=== PATIENT | male | born 1950 | race Caucasian/White ===

== ENCOUNTER → 2018-11-29 | Outpatient (CLI) | payer OTHER | LOC: RAD 11:04 | DX: R06.02 Shortness of breath (principal); M47.814 Spondylosis without myelopathy or radiculopathy, thoracic region ==

== ENCOUNTER 2018-12-07 11:20 | Emergency (ER) | payer OTHER ==
[~2018-12-07] VITALS: Ht 190.5 cm; Wt 95.3 kg
[2018-12-07] MEDS ORDERED: NORFLEX100 MG PO (14:10)
[2018-12-07] MEDS ORDERED: MOBIC7.5 MG PO (14:10)
[2018-12-07 14:40] VITALS: BP 150/51
== END 2018-12-07 16:15 | disposition home or self-care (01) ==
LOC: ER 11:20
DX: M54.2 Cervicalgia (principal); E11.9 Type 2 diabetes mellitus without complications; I10 Essential (primary) hypertension

== ENCOUNTER 2018-12-12 00:57 | Inpatient (IN) | payer OTHER ==
[~2018-12-12] VITALS: Ht 193 cm; Wt 93.9 kg
[~2018-12-12 00:57] MED LIST: MOBIC7.5 MG PO; NORFLEX100 MG PO
[2018-12-12 00:58] VITALS: BP 105/66
[2018-12-12 01:45] LABS: HEMATOCRIT 40.8 % (42.0-52.0); HEMOGLOBIN 13.9 gm/dL (14.0-18.0); MCH 32.4 pg (26.0-34.0); MCHC 34.1 g/dL (28.0-37.0); PLATELET COUNT 110 thou/uL (150-400); RDW 12.5 % (10.5-14.5); WBC 13.3 thou/uL (4.0-11.0)
[2018-12-12] MEDS ORDERED: BENICAR20 MG PO (01:46)
[2018-12-12] MEDS ORDERED: GLUCOPHAGE XR500 MG PO (01:47)
[2018-12-12 01:51] LABS: ANION GAP 11 mmol/L (7-16); BUN 30 mg/dL (7-18); CALCIUM 8.5 mg/dL (8.5-10.1); CHLORIDE 90 mmol/L (98-107); CO2 25 mmol/L (21-32); CREATININE 1.2 mg/dL (0.7-1.3); GLUCOSE 236 mg/dL (74-106); POTASSIUM 3.5 mmol/L (3.5-5.1); SODIUM 126 mmol/L (136-145)
[2018-12-12 02:01] LABS: ALBUMIN 2.3 g/dL (3.4-5.0); DIRECT BILIRUBIN 0.4 mg/dL (<0.1-0.3); SGOT 24 U/L (15-37); SGPT 24 U/L (30-65); TOTAL BILIRUBIN 0.9 mg/dL (<0.1-1.0); TOTAL PROTEIN 5.9 g/dL (6.4-8.2); TROPONIN-I <0.06 ng/mL (<0.06)
[2018-12-12 02:16] LABS: ABSOLUTE NEUTROPHILS 11.7 thou/uL (1.4-8.2)
[2018-12-12 02:21] LABS: URINE BILIRUBIN NEGATIVE (Negative); URINE BLOOD 2+ (Negative); URINE CLARITY CLOUDY; URINE COLOR YELLOW; URINE GLUCOSE-RANDOM* 1+ (Negative); URINE KETONES NEGATIVE (Negative); URINE NITRITE-REFLEX NEGATIVE (Negative); URINE PROTEIN (DIPSTICK) 2+ (Negative)
[2018-12-12 02:22] LABS: MUCUS None Seen strn/LPF (None Seen); SQUAMOUS None Seen /LPF (0-3); URINE LEUKOCYTES-REFLEX 3+ (Negative)
[2018-12-12 02:23] LABS: BACTERIA-REFLEX >30 Many /HPF (None Seen); CASTS None Seen /LPF (None Seen); CRYSTALS None Seen /LPF (None Seen); URINE RBC 3-10 Few /HPF (0-2); URINE WBC-REFLEX >25 Many /HPF (0-5); WBC CLUMPS Few (None Seen)
--- NOTE | 2018-12-12 05:42 | NUR ---
PER SUMIT, MESSAGE LEFT ON ANTONINA PHONE ABOUT BP AND STARTING FLUIDS
[2018-12-12 06:25] LABS: AMP/METHAMP Negative (Negative); BARBITURATES Negative (Negative); BENZODIAZEPINES Negative (Negative); COCAINE Negative (Negative); METHADONE Negative (Negative); OPIATES Negative (Negative); PCP Negative (Negative)
[2018-12-12 10:30] VITALS: BP 115/64
[2018-12-12 10:31] VITALS: BP 114/62
[2018-12-12 11:30] VITALS: BP 126/54; BP 127/80
[2018-12-12 15:02] VITALS: BP 139/72
--- NOTE | 2018-12-12 18:33 | NUR ---
PT CAME TO FLOOR APPROX 1115, VSS/NO DISTRESS, DENIES PAIN. PT CONCERNED ABOUT FULL BODY WEAKNESS AND BEING UNABLE TO COMPLETE ADLS. ANTIBIOTICS STARTED, FLUIDS RUNNING, FALL BUNDLE IN PLACE. PT GIVEN STOOL SOFTNER HE STATES HE HASNT HAD A BM IN A WEEK. PT STATED HE HAD A COLONOSCOPY ONE WEEK AGO WELL. WILL CONTINUE TO MONITOR.
[2018-12-12 19:58] VITALS: BP 153/66
--- NOTE | 2018-12-12 22:40 | EKG ---
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 : 1950 Requested By: Debbie Griffin Order Number: [id number] MD: James Carroll Measurements Intervals [place] Rate: 91 P: 18 MS: 173 QRS: -23 QRSD: 105 T: 42 QT: 341 QTc: 420 Interpretive Statements Sinus rhythm Atrial premature complexes Inferior infarct, old No previous ECG available for comparison Electronically Signed On 12-12-2018 22:40:49 CDT by James Carroll [email or web address] ��������������������������������������������� <ELECTRONICALLY SIGNED> ���������������������������������������� By: James Carroll MD ��������������������������������������������� 12/12/18 2240 James Carroll MD /AGATA
--- NOTE | 2018-12-13 02:35 | NUR ---
ASSUMED CARE ANDREINA 1900. AXOX4. FAMILY AT BEDSIDE. BLOOD CULTURE CAME BACK POSITIVE FOR GRAM POSITIVE COCCI. CALLED ANGLESMITH RAM PRESS OPERATOR FOR HIMS AND OBTAINED ORDER FOR ONETIME VANCOMYCIN AND BLOOD CULTURE IN AM. PT STILL ON ROCEPHINE FOR UTI. NO S/S ACUTE DISTRESS NOTED OR REPORTED AT THIS TIME. WILL CONT TO MONITOR FOR ANY CHANGES IN CONDITION.
[2018-12-13 03:36] VITALS: BP 143/98
[2018-12-13 05:36] LABS: CALCIUM 7.6 mg/dL (8.5-10.1); CREATININE 0.7 mg/dL (0.7-1.3); POTASSIUM 3.2 mmol/L (3.5-5.1)
[2018-12-13 07:08] VITALS: BP 136/69
[2018-12-13 14:43] VITALS: BP 128/58
--- NOTE | 2018-12-13 18:12 | NUR ---
Received awake on bed. Due medications given as prescribed. Vital signs stable. Visited by relatives this PM. On blood sugar monitoring- SS insulin given as prescribed. with IVF at Left hand- infusing well, intact. Pt turned regularly. Assisted in ADLs and Eating and drinking. A+O x 4. Complained of constipation- laxatives given. Able to pass urine using urinal. Complained of headache- medication given with full relief. Pt seen by Dr. Zhu: d/c IVF- done. With consults to Dr. Roca and Dr. Carroll- US called in and made consults. Pt. Had PT session today and tolerated well.
[2018-12-13 20:12] VITALS: BP 126/53
--- NOTE | 2018-12-14 02:57 | NUR ---
patient aox4 makes needs known. 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 patient encouraged fluids. patient had a headache tylenol given per order. patient asleep no s/s of pain or discomfort. patient in bed asleep at this time breathing regular and unlaboured.
[2018-12-14 04:16] VITALS: BP 149/91
[2018-12-14 05:50] LABS: HEMATOCRIT 38.9 % (42.0-52.0); HEMOGLOBIN 13.4 gm/dL (14.0-18.0); MCH 32.8 pg (26.0-34.0); MCHC 34.4 g/dL (28.0-37.0); MCV 95.5 fL (80.0-100.0); RBC 4.08 mil/uL (4.50-6.00); RDW 12.8 % (10.5-14.5); WBC 12.4 thou/uL (4.0-11.0)
[2018-12-14 05:59] LABS: CREATININE 0.7 mg/dL (0.7-1.3); POTASSIUM 3.3 mmol/L (3.5-5.1)
[2018-12-14 07:37] VITALS: BP 157/84
--- NOTE | 2018-12-14 10:39 | HC ---
[facility] [place] [address] CONSULTATION Name: MEREDITH PEREZ Room #: 455-P ADM IN M.R.#: [id number] Admission: 12/12/18 ������������������ Attend Phys: Jordan Lagunas MD Discharge: ������������������ Date of : 46 Report #: [id number] THIS REPORT FOR: //name// CC: Jordan Lenz DATE OF SERVICE: 12/13/2018 INFECTIOUS DISEASE CONSULTATION: ATTENDING PHYSICIAN: Dr. Zhu. REASON FOR CONSULTATION: Bacteremia. HISTORY OF PRESENT ILLNESS: A 68-year-old white man admitted through the Emergency Room with profound weakness. Apparently, these problems had been going on for 4 days, recently evaluated in the Emergency Room with some headaches and left leg feeling stiff. The patient treated with nonsteroidal anti-inflammatory drugs and muscle relaxers. 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 DRUG ALLERGIES: None listed. MEDICATIONS: The patient is currently on treatment with olmesartan medoxomil 20 mg daily, docusate 100 mg p.o. b.i.d. p.r.n., polyethylene glycol 17 grams p.o. daily, insulin lispro per sliding scale, p.r.n. glucose, glucagon, ceftriaxone 1 gram IV daily, vancomycin 1 gram IV single dose. SOCIAL HISTORY: , 3 children. 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 REVIEW OF SYSTEMS: Aches and pains, malaise, profound weakness. Dysuria and some frequency. PHYSICAL EXAMINATION: GENERAL: A well-developed, not toxic looking man, in no distress. VITAL SIGNS: Temperature maximum 99.8 on admission, blood pressure as low as 77/44 on 12/12/2018 at 5:48 a.m. Currently, his blood pressure is 136/69, respirations 18, pulse 77, temperature 98.1. HEENMT: Edentulous, otherwise normal. NECK: Supple. LUNGS: Clear. HEART: S1, S2. No gallop or murmur. ABDOMEN: Soft, no masses or megaly. PELVIC AND RECTAL: Deferred. [facility] [address] [place] [address] CONSULTATION Name: MEREDITH PEREZ Room #: 455-P [facility] IN M.R.#: [id number] Admission: 12/12/18 ������������������ Attend Phys: Jordan Lgaunas MD Discharge: ������������������ Date of : 46 Report #: [id number] EXTREMITIES: Normal. LABORATORY DATA: Sodium 131, was 126 on admission. Potassium low 3.2, BUN 19 mg/dL, creatinine 0.7, glucose 132. Calcium 7.6. Albumin 2.3 g/dL. Lactic acid elevated at 2.5 millimoles per liters, it normalizes after repeat lactic acid. Urine toxicology screen negative. WBC 13.3, hemoglobin 13.9, platelets decreased to 110,000. White blood cell count differential revealed 75% segmented neutrophils, 13% bands. Procalcitonin mildly elevated 2.59. Urinalysis revealed 2+ protein, 1+ glucose, 2+ blood, 2+ urobilinogen, 3+ leukocyte esterase, greater than 25 wbc's per HPF, 3-10 rbc's per HPF and bacteriuria. MICROBIOLOGY DATA: Urine culture pending. Blood cultures 2 out of 2 samples obtained on the date of admissions are showing Gram-positive cocci. RADIOLOGY EVALUATION: Chest x-ray done 11/29/2018 revealed no acute cardiopulmonary process. CAT scan of the C-spine revealed no fractures, anatomic alignment is normal. CT scan of the head revealed no acute intracranial abnormalities. ASSESSMENT: 1. Acute sepsis secondary to acute prostatitis versus pyelonephritis, complicated with bacteremia with Gram-positive cocci. 2. Hypotension, resolved. 3. Lactic acidemia, resolved. 4. Mild anemia. 5. Thrombocytopenia. 6. Diabetes mellitus. SUGGESTIONS: Recommend, must continue treatment with coverage against Gram-positive cocci that is Enterococcus and Staphylococcus and vancomycin appears to be the drug of choice. We will continue to dose 1 gram IV every [address] Zhu, thank you for requesting my suggestions. ��������������������������������������������� <ELECTRONICALLY SIGNED> ���������������������������������������� By: Robert Carroll MD ��������������������������������������������� 12/14/18 1039 1532 0124 Robert Carroll MD /nt
[2018-12-14 14:34] VITALS: BP 148/83
--- NOTE | 2018-12-14 14:49 | NUR ---
PT ADMITTED RELATED TO UTI/WEAKNESS. CM REVIEWED CHART AND SPOKE WITH CARE TEAM. CM MET WITH PT AT BEDSIDE THIS DAY. PT IS A&O X4. CM ROLE INTRODUCED. PT INDICATED HE HAD BEEN LIVING IN A HOUSE WITH HIS WITH 2 STEPS TO ENTER AND 12 STEPS TO BASEMENT INSIDE. 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 PT INDICATED NO DME OR HH HX. PT INDICATED THAT HE DOESN'T FEEL THAT HE WOULD BE SAFE TO RETURN HOME IN HIS CURRENT CONDITION AND HE IS NEEDING ASSISTANCE AND HE INDICATED HIS WOULDN'T BE ABLE TO ASSIST HIM. PT INDICATED HE MIGHT BE RECEPTIVE TO SHORT TERM POST ACUTE CARE STAY. CM CALLED AND LEFT VM FOR PT'S SPOUSE. CM PROVIDED PT WITH LIST OF SNF FACIITIES FOR POSSIBLE REVIEW. CM TO FOLLOW INDICATED WITH DC PLANNING.
--- NOTE | 2018-12-14 15:34 | 2DMMODE ---
[facility] [address] [place] [address] 2 D/M-MODE ECHOCARDIOGRAM Name: MEREDITH PEREZ Room #: 455-P ADM IN M.R.#: [id number] ������������� Admission: 12/12/18 ������������� Attend Phys: Jordan Lagunas MD Discharge: ��� ������������� ��� Date of : 46 Date of Service: 12/14/18 1534 �� Report #: [id number] �������� ��������������������������������������������[id number] THIS REPORT FOR: //name// APPROVED REPORT Study performed: 12/14/2018 14:00:04 EXAM: Comprehensive 2D, Doppler, and color-flow Echocardiogram Patient Location: Bedside Room #: [facility] Status: routine BSA: 2.25 HR: 72 bpm BP: 157/84 mmHg Rhythm: NSR Other Information Study Quality: Good Indications Positive blood cultures. 2D Dimensions RVDd: 34.89 mm IVSd: 12.71 (7-11mm) LVOT Diam: 23.72 (18-24mm) LVDd: 49.80 mm PWd: 10.12 (7-11mm) Ascending Ao: 38.05 (22-36mm) LVDs: 35.05 (25-40mm) Aortic Root: 41.56 mm Volumes Left Atrial Volume (Systole) Single Plane 4CH: 51.85 mL Single Plane 2CH: 49.16 mL LA ESV Index: 25.00 mL/m2 Aortic Valve AoV Peak Idris.: 1.55 m/s AO Peak Gr.: 9.63 mmHg LVOT Max P.40 mmHg LVOT Max V: 1.05 m/s WILIAN Vmax: 2.99 cm2 Mitral Valve E/A Ratio: 0.7 MV Decel. Time: 299.49 ms MV E Max Idris.: 0.64 m/s [facility] [address] [place] [address] 2 D/M-MODE ECHOCARDIOGRAM Name: MARY PEREZH Room #: 455-[facility] IN [facility].#: [id number] ������������� Admission: 12/12/18 ������������� Attend Phys: Jordan Lagunas MD Discharge: ��� ������������� ��� Date of : 46 Date of Service: 12/14/18 1534 �� Report #: [id number] �������� ��������������������������������������������[id number] A Idris.: 0.89 m/s MV PHT: 86.85 ms IVRT: 96.89 ms Pulmonary Valve PV Peak Idris.: 0.93 m/s PV Peak Gr.: 3.46 mmHg Tricuspid Valve TR Peak Idris.: 2.33 m/s RAP Estimate: 5.00 mmHg TR Peak Gr.: 21.68 mmHg PA Pressure: 27.00 mmHg Shunt Evaluation QP/QS: 3.00 Left Ventricle The left ventricle is normal size. There is normal LV segmental wall motion. There is normal left ventricular wall thickness. Left ventricular systolic function is normal. LVEF is 55-60%. Mild diastolic dysfunction is present (impaired relaxation pattern). Right Ventricle The right ventricle is normal size. The right ventricular systolic function is normal. Atria The left atrium size is normal. The right atrium size is normal. Aortic Valve Aortic valve leaflets are mildly thickened. Trace aortic regurgitation. There is no aortic valvular stenosis. Mitral Valve The mitral valve is normal in structure with echodensity consistent with vegetation Mild mitral regurgitation. Possible mitral valve vegetation is present. Tricuspid Valve The tricuspid valve is normal in structure. Trace tricuspid regurgitation. Estimated PAP is 25-30mmHg. Pulmonic Valve The pulmonary valve is normal in structure. Trace pulmonic regurgitation. [facility] [address] [place] [address] 2 D/M-MODE ECHOCARDIOGRAM Name: MEREDITH PEREZ Room #: 455-P ADM IN M.R.#: [id number] ������������� Admission: 12/12/18 ������������� Attend Phys: Jordan Lagunas MD Discharge: ��� ������������� ��� Date of : 46 Date of Service: 12/14/18 1534 �� Report #: [id number] �������� ��������������������������������������������[id number] Great Vessels Aortic root is dilated at 4.2cm. The ascending aorta measures at the upper limits of normal. IVC is normal in size and collapses >50% with inspiration. Pericardium There is no pericardial effusion. <Conclusion> The left ventricle is normal size. LVEF is 55-60%. Aortic valve leaflets are mildly thickened. Trace aortic regurgitation. The mitral valve is normal in structure with echodensity consistent with vegetation or thrombus Mild mitral regurgitation. Probable mitral valve vegetation is present. The tricuspid valve is normal in structure. Trace tricuspid regurgitation. Estimated PAP is 25-30mmHg. The pulmonary valve is normal in structure. Trace pulmonic regurgitation. Aortic root is dilated at 4.2cm. The ascending aorta measures at the upper limits of normal. There is no pericardial effusion. ��������������������������������������������� <ELECTRONICALLY SIGNED> ���������������������������������������� By: Pablo Padilla MD ��������������������������������������������� 12/14/18 1534 1534 1534 Pablo Padilla MD /INF
--- NOTE | 2018-12-14 15:40 | NUR ---
Received awake on bed. Due medications given as prescribed. With IV at L wrist. Pt had PT/OT session today- tolerated well. Complained he still haven't opened bowels for 2 days- Dr. Woodward informed as well electrolyte levels. On blood sugar monitoring- SS insulin given as prescribed. A+Ox4. On room air. Still weak- assisted in eating, drinking and ADLs. Echo done at bedside today. Vital signs stable. Falls risk- protocol observed. Patient turned regularly.
[2018-12-14 19:47] VITALS: BP 125/67
--- NOTE | 2018-12-14 23:32 | NUR ---
Assumed care at 1845. Pt resting in bed. Still is feeling weak. Still needs assistance with ADL's. AOX4. VSS. Afebrile. Denies Headache. Has been getting Tylenol. Still is constipated. Hasnt had any BM is last couple of days. Pt has prn laxatives his been getting. Needs X2 assistance getting out of the bed. X1 assist once walking with a walker and gait belt. No identified needs at the moment. Will continue to monitor.
[2018-12-15 04:37] VITALS: BP 145/75
[2018-12-15 07:09] VITALS: BP 150/73
[2018-12-15 13:50] VITALS: BP 137/61
--- NOTE | 2018-12-15 15:09 | NUR ---
CM FOLLOWED UP WITH PT AT BEDSIDE THIS DAY TO INQUIRE TO WHERE HE WANTED REFERRALS SENT FOR POSSIBLE ADMISSION. HE INDICATED THAT HE HAD GIVEN THE LIST TO HIS AND THAT SHE HAD PICKED SOME. CM CALLED PT'S AND GOT HER VM. CM TO FOLLOW INDICATED WITH DC PLANNING.
--- NOTE | 2018-12-15 16:33 | NUR ---
PT ASSESSED AT START OF SHIFT. WORKING W/ THERAPY AND BECOMING STRONGER-PT RELIEVED. ECHO SHOWING SOME POTENTIAL VEGITATION ON MITRAL VALVE AND WILL HAVE SALLY ON THURSDAY AFTER DR. ARANGO RETURNS. NOTIFIED. NO C/O PAIN. UP IN THE CHAIR MOST OF SHIFT. EATING AND DRINKING WELL.
[2018-12-15 20:10] VITALS: BP 140/71
--- NOTE | 2018-12-15 22:49 | NUR ---
Assumed care at 1845. Pt resting in bed. AOX4. Denies pain. Talked to the son Wenceslao Wiggins. Pt is still up from bed with X2 assist but he has been improving working with PT. CM send referrals to [facility]. Still waiting on the scheduled SALLY. No identified needs the moment. Will continue to monitor.
[2018-12-16 02:50] VITALS: BP 134/62
[2018-12-16 05:33] LABS: CALCIUM 7.8 mg/dL (8.5-10.1); CREATININE 0.7 mg/dL (0.7-1.3); POTASSIUM 3.4 mmol/L (3.5-5.1)
[2018-12-16 05:34] LABS: HEMATOCRIT 37.4 % (42.0-52.0); HEMOGLOBIN 12.8 gm/dL (14.0-18.0); MCH 32.7 pg (26.0-34.0); MCHC 34.2 g/dL (28.0-37.0); MCV 95.5 fL (80.0-100.0); RBC 3.92 mil/uL (4.50-6.00); WBC 10.7 thou/uL (4.0-11.0)
[2018-12-16 07:18] VITALS: BP 147/71
--- NOTE | 2018-12-16 14:04 | NUR ---
[facility] CALLED AND INDICATED THAT THEY NEEDED ADDITIONAL CLINICAL INFO REQUESTED PT, OT, AND PROG NOTES. CM TO FAX OT VARIENCED PT YESTERDAY AND TODAY. CM TO FOLLOW INDICATED WITH DC PLANNING.
[2018-12-16 15:00] VITALS: BP 169/76
--- NOTE | 2018-12-16 19:20 | NUR ---
PT A&OX4, VSS NO DISTRESS, DENIES PAIN. FALL BUNDLE IN PLACE. PT AWAITING SALLY IN THE AM, HAS BEEN NOTIFIED THAT HE WILL BE NPO AFTER MIDNIGHT. FAMILY HAS BEEN AT BEDSIDE. WILL CONTINUE TO MONITOR.
[2018-12-16 19:36] VITALS: BP 141/76
[2018-12-17] VITALS (7 sets, daily range): BP systolic 121–165; BP diastolic 63–88
--- NOTE | 2018-12-17 05:16 | NUR ---
Assumed care at 1845. Pt resting in bed. AOX4. VSS. Denies Headache. Has been NPO since midnight. Scheduled SALLY in the am. Pt been using urinal in bed. Call light within reach. Bed in lowest position. Will continue to monitor.
--- NOTE | 2018-12-17 11:15 | TEE ---
[facility] [address] [place] [place] [address] TRANSESOPHAGEAL ECHOCARDIOGRAM Name: MEREDITH PEREZ Room #: 455-P ADM IN M.R.#: [id number] ������������� Admission: 12/12/18 ������������� Attend Phys: Jordan Lagunas MD Discharge: ��� ������������� ��� Date of : 46 Date of Service: 12/17/18 1114 �� Report #: [id number] �������� ��������������������������������������������[id number] THIS REPORT FOR: //name// APPROVED REPORT Study performed: 12/17/2018 08:52:09 EXAM: Transesophageal Echocardiogram Patient Location: [facility] Room #: 455 Status: routine BSA: 2.25 HR: 85 bpm BP: 149/81 mmHg Rhythm: NSR Other Information Study Quality: Good Indications Mitral valve vegetation. Procedure After obtaining informed consent, patient underwent transesophageal echo in the [employer]. Type of Sedation : Conscious Sedation Sedation was administered by Chiquita Guido RN. Sedation was achieved intravenously with: Versed (3) Fentanyl (50) Transesophageal probe was inserted and advanced into esophagus without difficulty by Saul Chau MD. Echo enhancement indication: R/O Septal defect. Echo enhancement agent administered: Agitated Saline The SALLY was performed without complications. Throughout the procedure, the blood pressure, pulse oximetry, cardiac rhythm, and rate were monitored. The patient tolerated the procedure without adverse effects. Recovery from conscious sedation was uneventful and vital signs were stable. Left Ventricle The left ventricle is normal size. There is normal LV segmental wall motion. There is normal left ventricular wall thickness. Left ventricular systolic function is normal. LVEF is 55-60%. [facility] [address] [place] [address] TRANSESOPHAGEAL ECHOCARDIOGRAM Name: MEREDITH PEREZ Room #: 455-P ADM IN M.R.#: [id number] ������������� Admission: 12/12/18 ������������� Attend Phys: Jordan Lagunas MD Discharge: ��� ������������� ��� Date of : 46 Date of Service: 12/17/18 1114 �� Report #: [id number] �������� ��������������������������������������������[id number] Right Ventricle The right ventricle is normal size. The right ventricular systolic function is normal. Atria The left atrium size is normal. No thrombus is visualized in the left atrium or appendage. No shunting noted with contrast bubble injection. The right atrium size is normal. Aortic Valve The aortic valve is normal in structure. No aortic regurgitation is present. There is no aortic valvular stenosis. Mitral Valve Irregular bordered mass with linear threadlike extension (approx 2.0cm in length) adherent to the anterior leaflet of the mitral valve Mild mitral regurgitation. Tricuspid Valve The tricuspid valve is normal in structure. Trace tricuspid regurgitation. Pulmonic Valve The pulmonary valve is normal in structure. Trace pulmonic regurgitation. Great Vessels The aortic root is normal in size. IVC is normal in size and collapses >50% with inspiration. Pericardium There is no pericardial effusion. Critical Notification Critical Value: Yes Physician Notified Date: 12/17/2018 <Conclusion> Left ventricular systolic function is normal. There is normal LV segmental wall motion. LVEF 55-60%. No thrombus is visualized in the left atrium or appendage. No shunting noted with contrast bubble injection. The aortic valve is normal in structure. No aortic regurgitation or stenosis. Irregular bordered mass with linear threadlike extension (approx [facility] [address] [place] [address] TRANSESOPHAGEAL ECHOCARDIOGRAM Name: MEREDITH PEREZ Room #: 455-P ADM IN ..#: [id number] ������������� Admission: 12/12/18 ������������� Attend Phys: Jordan Lagunas MD Discharge: ��� ������������� ��� Date of : 46 Date of Service: 12/17/18 111 �� Report #: [id number] �������� ��������������������������������������������[id number] 2.0cm in length) adherent to the anterior leaflet of the mitral valve Mild mitral regurgitation. There is no pericardial effusion. ��������������������������������������������� <ELECTRONICALLY SIGNED> ���������������������������������������� By: Saul Chau MD, [facility] ��������������������������������������������� 12/17/184 13 13 Saul Chau MD, FAC /INF
--- NOTE | 2018-12-17 16:14 | NUR ---
FOLLOWING SALLY CARDIOTHORACIC SURGERY HAS BEEN CONSULTED. REFERRAL HAD BEEN SENT TO [facility] FOR REVIEW FOR POSSIBLE ADMISSION. CM TO FOLLOW INDICATED WITH POSSIBLE DC PLANNING. IT IS ANTICPATED THAT PT WILL BE HERE OVER THE WEEKEND.
--- NOTE | 2018-12-17 20:33 | NUR ---
PT A&OX4, VSS, DENIES PAIN. PT HAD SALLY PROCEDURE DONE TODAY. NO SIGNS OF DISTRESS. FAMILY IN TO VISIT. WILL CONTINUE TO MONITOR.
[2018-12-18 03:27] VITALS: BP 151/69
--- NOTE | 2018-12-18 04:30 | NUR ---
ASSUMED CARE OF PT AT 1900hrs. PT IS AOX4 AND WAS ABLE TO SLEEP PART OF THE SHIFT. PT HAD A LOW GRADE FEVER AND WAS TREATED WITH TYLENOL. NO OTHER S/S OF ACUTE DISTRESS. WILL CONTINUE TO MONITOR.
[2018-12-18 04:53] LABS: HEMATOCRIT 37.2 % (42.0-52.0); HEMOGLOBIN 12.9 gm/dL (14.0-18.0); MCH 32.8 pg (26.0-34.0); MCHC 34.6 g/dL (28.0-37.0); MCV 94.8 fL (80.0-100.0); RBC 3.93 mil/uL (4.50-6.00); RDW 12.8 % (10.5-14.5); WBC 9.3 thou/uL (4.0-11.0)
[2018-12-18 05:07] LABS: ALBUMIN 1.9 g/dL (3.4-5.0); CALCIUM 7.9 mg/dL (8.5-10.1); CREATININE 0.7 mg/dL (0.7-1.3); POTASSIUM 3.9 mmol/L (3.5-5.1); TOTAL BILIRUBIN 0.9 mg/dL (<0.1-1.0); TOTAL PROTEIN 5.7 g/dL (6.4-8.2)
[2018-12-18 07:47] VITALS: BP 145/69
--- NOTE | 2018-12-18 12:41 | NUR ---
TOWARDS POC PT A/O X4, VSS, AFEBRILE, DENIES PAIN. PT REFUSED TO SIT IN THE CHAIR. NO CONCERNS VOICED. WILL CONTINUE TO MONITOR.
[2018-12-18 14:19] VITALS: BP 142/68
[2018-12-18 20:21] VITALS: BP 145/73
--- NOTE | 2018-12-19 02:05 | NUR ---
ASSUMED CARE OF PT AT 1900 HRS. PT AOX4 AND STATES THAT HE FEELS STRONGER. PT WAS ABLE TO SLEEP PART OF THE SHIFT. ABX TREATMENT CONTINUED. NO OTHER S/S OF ACUTE DISTRESS. WILL CONTINUE TO MONITOR.
[2018-12-19 04:36] VITALS: BP 147/81
[2018-12-19 08:00] VITALS: BP 140/61
--- NOTE | 2018-12-19 13:13 | NUR ---
TOWARDS POC PT VSS, AFEBRILE, DENIES PAIN, NO CONCERNS VOICED. WILL CONTINUE TO MONITOR.
[2018-12-19 14:32] VITALS: BP 153/79
[2018-12-19 19:35] VITALS: BP 141/64
[2018-12-20 03:22] VITALS: BP 151/75
[2018-12-20 03:51] LABS: CALCIUM 8.2 mg/dL (8.5-10.1); CREATININE 0.6 mg/dL (0.7-1.3); POTASSIUM 3.7 mmol/L (3.5-5.1)
[2018-12-20 03:56] LABS: HEMATOCRIT 38.2 % (42.0-52.0); HEMOGLOBIN 13.1 gm/dL (14.0-18.0); MCH 32.7 pg (26.0-34.0); MCHC 34.3 g/dL (28.0-37.0); MCV 95.4 fL (80.0-100.0)
--- NOTE | 2018-12-20 05:17 | NUR ---
Pt. rested quietly at intervals during the night when checked on during frequent rounds. He did voice having a moderate amount of loose stools during the shift. Po tylenol was given for c/o a headache (see emar) with some relief noted.
[2018-12-20 08:00] VITALS: BP 146/76
--- NOTE | 2018-12-20 10:39 | HC ---
[facility] [place] [address] CONSULTATION Name: MEREDITH PEREZ Room #: 455-P ADM IN M.R.#: [id number] Admission: 12/12/18 ������������������ Attend Phys: Jordan Lagunas MD Discharge: ������������������ Date of : 46 Report #: [id number] THIS REPORT FOR: //name// CC: Jordan Lenz DATE OF SERVICE: 12/17/2018 We were asked to see the patient for the mitral valve vegetation and infective endocarditis. HISTORY OF PRESENT ILLNESS: The patient is a 68-year-old with admission on 12/12, at the time the patient was complaining of weakness and lassitude and slurred speech. In the Emergency Department, the patient was thought to have a urinary tract infection and possible sepsis and was admitted for initial treatment of this. Over the course of the hospitalization, it has become clear that the patient has bacteremia. The urinary tract infection was E. coli, but blood cultures have grown Staph aureus. A transesophageal echo done today shows vegetation on the anterior leaflet of the mitral valve. Antibiotics have been modified on the basis of the cultures and sensitivities, and the most recent blood cultures from 12/14 showed no growth. PAST MEDICAL HISTORY: Significant for diabetes mellitus and hypertension. Interestingly, the patient states that he had a colonoscopy done approximately 2 weeks ago at the [facility]. Medications at home includes olmesartan and metformin. The patient also has been taking Meloxicam and orphenadrine (Norflex) for muscle spasms in his neck. ALLERGIES: None known. SOCIAL HISTORY: The patient states he quit smoking 3 months ago. When I asked the patient why he quit smoking, he said that was because he was sick, but this predates his stated history of prodromal illness. The patient according to the chart drank 10 beers a day until recently. REVIEW OF SYSTEMS: CONSTITUTIONAL: Denies fever or chills. EYES: Denies eye pain or vision change. HEENT: Denies hearing changes, ear drainage. The patient complains of neck discomfort recently. [facility] [address] [place] [address] CONSULTATION Name: MEREDITH PEREZ Room #: 455-P [facility] IN M.R.#: [id number] Admission: 12/12/18 ������������������ Attend Phys: Jordan Lagunas MD Discharge: ������������������ Date of : 46 Report #: [id number] RESPIRATORY: Denies cough, shortness of breath, hemoptysis. CARDIOVASCULAR: Denies chest pain, palpitations. GASTROINTESTINAL: Denies nausea, vomiting, blood in stool. GENITOURINARY: Denies burning, frequency or blood. MUSCULOSKELETAL: General weakness and specifically neck discomfort. SKIN: Denies rash or infection. No bites or IV phlebitis. NEUROLOGIC: No focal motor or sensory dysfunction as mentioned in the history. There was a story of slurred speech at the time of admission. PHYSICAL EXAMINATION: GENERAL: The patient is lying in bed, seems comfortable today. VITAL SIGNS: Temperature is 37, heart rate 65, respiratory rate 18, blood pressure 151/83, and pulse ox 98%. HEENT: No scleral icterus, no arcus. Pupils are equal, round. Normocephalic. NECK: No bruit, no mass. CHEST: Clear to auscultation, somewhat amphoric sounds. HEART: Rhythm is regular. Heart tones are bit distant. ABDOMEN: Soft, no mass, no tenderness. EXTREMITIES: No clubbing, cyanosis or edema, 2+ distal pulses. Some scratches on the anterior shins are seen, but no evidence of cellulitis. NEUROLOGIC: No motor or sensory dysfunction. MUSCULOSKELETAL: No asymmetry or deformity. PSYCHIATRIC: Shows insight into problem and he is a pleasant fellow and is oriented. I reviewed the recent findings of the transesophageal echo with the patient. I have also discussed the case with Dr. Robert Carroll of the Infectious Disease Service. There is a lesion on the anterior leaflet, the size of the lesion is 1 or 2 cm depending on measurements, but this size of the lesion in itself is a class 2B, indication for surgery. If the patient has persistent positive blood cultures or evidence that the lesion is growing in size, then I think surgery would be appropriate. If blood cultures are continued to be negative on renewed treatment, it may be possible to spare the valve as there was not a significant amount of mitral incompetence seen and there is no story of persistent emboli. It is somewhat quieting that we do not know specifically what the source for the endocarditis is and there is always a risk of putting a new prosthesis at that same risk. Thank you for the consult. ��������������������������������������������� <ELECTRONICALLY SIGNED> ���������������������������������������� By: Tito Ruiz MD ��������������������������������������������� 12/20/18 1039 [id number] 45 Tito Ruiz MD /nt
--- NOTE | 2018-12-20 11:41 | NUR ---
TOWARDS POC PT A/O X4, VSS, AFEBRILE, NO SOA, NO NV. PT/OT WORK WITH HIM. NO CONCERNS VOICED. WILL CONTINUE TO MONITOR.
[2018-12-20 15:00] VITALS: BP 156/71
[2018-12-20 19:36] VITALS: BP 125/68
[2018-12-21 03:20] VITALS: BP 155/82
--- NOTE | 2018-12-21 04:13 | NUR ---
Pt. rested quietly during the night when checked on during frequent rounds. He did c/o a headache and was given tylenol times two this shift (see emar) with some relief noted. No c/o loose stools, but frequent flatus. Bed alarm is on.
[2018-12-21 07:40] VITALS: BP 161/80
--- NOTE | 2018-12-21 11:55 | NUR ---
Nutrition: assess d/t LOS. Pt admitted for UTI and weakness. Pt states he has lost some weight over the past few years but has been somewhat stable recently. His appetite has been poor but is starting to improve. Provided info on how to order meals. Consider low nutrition risk at this time.
[2018-12-21] MEDS ORDERED: ACETAMINOPHEN325 M1 PO (13:41)
[2018-12-21] MEDS ORDERED: RIFADIN IVPB (13:41)
[2018-12-21] MEDS ORDERED: COLACE 100 MG100 MG PO (13:41)
[2018-12-21] MEDS ORDERED: MIRALAX17 GM PO (13:41)
[2018-12-21] MEDS ORDERED: B-12500 MCG PO (13:41)
[2018-12-21] MEDS ORDERED: MUCINEX DM ER1 EAC1 PO (13:41)
[2018-12-21] MEDS ORDERED: NAFCILLIN2 GM/100 M IV (13:41)
--- NOTE | 2018-12-21 14:11 | NUR ---
VASCULAR ACCESS TEAM CONSULTED FOR PICC LINE. PT'S LABS,MEDS,ORDER,HISTORY AND CONSENT VERIFIED. KEYONA BRACHIAL WAS WIDELY PATENT WITH USG,1% LIDOCAINE GIVEN SQ. 4FR SL POWER PICC TRIMMED TO 49CM INSERTED TO 0CM WITH BRISK BR. PICC SECURED SATA CXR ORDERED.
--- NOTE | 2018-12-21 14:40 | NUR ---
PRIOR TO PICC PLACEMENT DISCUSSED BENEFITS AND RISKS OF PICC WITH PT,VERBALIZED UNDERSTANDING. CXR CONFIRMED PLACEMENT. PICC RELEASED FOR IMMEDIATE USE PER PROTOCOL TO [facility]
[2018-12-21 14:56] VITALS: BP 151/90
--- NOTE | 2018-12-21 15:46 | NUR ---
DISCHARGE ORDERS RECEIVED. PATIENT DISCHARGING TO [facility]. DISCHARGE ORDERS FAXED TO [facility] ADMISSIONS. CALL RECEIVED FROM [facility] REQUESTING CLINICAL ADDRESSING PICC LINE PLACEMENT. CLINICAL INFORMATION PRINTED AND FAXED TO HER, VERIFIED RECEIVED. [facility] TO NOTIFY CM ONCE TRANSPORTATION HAS BEEN COORDINATED. CHART COPY HAS BEEN COMPLETED PER [facility] WELLNESS COACH. FOLLOWING TO ASSIST.
--- NOTE | 2018-12-21 16:21 | NUR ---
cm faxed updated clinincal to [facility] this am indicating that pt is medically stable for discharge this day. cm spoke with facility and they had recieved auth but they are awaiting a carve out of pt's iv abx. admissions at the facility indicated that they don't anticipate recieving the carve out this evening and anticpate admission tomorrow am. cm to follow as indicated with dc planning.
[2018-12-21 20:27] VITALS: BP 163/84
--- NOTE | 2018-12-22 02:22 | NUR ---
ASSUMED CARE OF PT AT 1900HRS. PT AOX4 AND WAS COMFORTABLE THIS SHIFT. PT HAD A SLIGHT HEADACHE AND WAS TREATED WITH MEDICATION. PT WAS ABLE TO SLEEP PART OF THE SHIFT. NO OTHER S/S OF ACUTE DISTRESS. WILL CONTINUE TO MONITOR.
[2018-12-22 04:06] VITALS: BP 153/74
[2018-12-22 06:01] LABS: ABSOLUTE NEUTROPHILS 5.6 thou/uL (1.4-8.2); BASOPHILS 1.1 % (0.0-2.0); HEMATOCRIT 33.2 % (42.0-52.0); HEMOGLOBIN 11.5 gm/dL (14.0-18.0); MCH 32.6 pg (26.0-34.0); MCHC 34.6 g/dL (28.0-37.0); MCV 94.4 fL (80.0-100.0); MONOCYTES 4.7 % (1.0-8.0); PLATELET COUNT 236 thou/uL (150-400); POLYS 75.2 % (36.0-66.0); RBC 3.52 mil/uL (4.50-6.00); WBC 7.4 thou/uL (4.0-11.0)
[2018-12-22 06:12] LABS: ALBUMIN 1.9 g/dL (3.4-5.0); CALCIUM 7.9 mg/dL (8.5-10.1); CREATININE 0.7 mg/dL (0.7-1.3); POTASSIUM 3.3 mmol/L (3.5-5.1); TOTAL BILIRUBIN 1.2 mg/dL (<0.1-1.0); TOTAL PROTEIN 5.5 g/dL (6.4-8.2)
[2018-12-22 07:00] VITALS: BP 174/65
--- NOTE | 2018-12-22 08:53 | NUR ---
PT IS A&0X4, SLIGHTLY [place], AMB W/ONE ASSIST FOR SAFETY, COMES FROM HOME AND PLANS ARE FOR HIM TO BE D/C TO [facility], HE'S READY TO BE D/C W/GOAL BEING TO GET STRONGER. KEYONA PICC LINE, NOTED D/C SUMMARY FROM [facility]. EDUCATED HIM ON D/C BEING STATED AND IT CAN TAKE 40 MIN TO AN HOUR OR SO FOR THE COMPLETE DISCHARGE TO BE COMPLETED AND PLEASE BE PATIENT, ENCOURAGED HIM TO USE CALL LIGHT FOR ANY NEEDS, DUMPED URINAL AND GAVE HIM A SECOND ONE AND SET BED ALARM FOR SAFETY
--- NOTE | 2018-12-22 12:25 | NUR ---
[facility] sent discharge papers and dc summary to [facility] (per request of Ann-Marie/brody best).
--- NOTE | 2018-12-22 13:46 | NUR ---
DR. GIBBS WITH ID INDICATED HE WOULD PREFER PT GO TO A FACILITY THAT HE FOLLOWS AT. PHYSICIAN INDICATED [facility] CM CHECKED WITH [facility] AND THEY DON'T TAKE HIS INSURANCE. PHYSICIAN MENTIONED [facility]. CM SPOKW WITH PT ABOUT [facility] AND PT INDICATED HE WANTED TOGO TO [facility] DUE TO LOCALION NEAR FAMILY HIS IS DISABLED. HE STATED HE DIDN"T WANT TO GO ANYWHERE ELSE. CM NOTFIED PHYSICIAN OF THIS. [facility] IS ABLE TO ACCEPT PT THIS IRENA. CHART COPY MADE. ORDERS WERE FAXED. TRANSPORT VIA [facility]ED FOR 1500. REPORT TO BE CALLED TO PAT AT . PT AND SPOUSE ARE AWARE AND AGREEABLE. NO OTHER CM INTERVENTION INDICATED. CASE CLOSED.
--- NOTE | 2018-12-22 15:52 | NUR ---
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
== END 2018-12-22 20:37 | DRG 871 ==
LOC: ER 00:57 → 4W 04:52 → EROBS 04:52 → 4W 10:43
PROVIDERS: Emergency Medicine; Internal Medicine; Internal Medicine Infectious Disease; Nurse Practitioner Acute Care; ADMIT Hospitalist
DX: A41.89 Other specified sepsis (principal); I33.0 Acute and subacute infective endocarditis; G92 Toxic encephalopathy; N10 Acute pyelonephritis; N41.0 Acute prostatitis; E87.1 Hypo-osmolality and hyponatremia; E46 Unspecified protein-calorie malnutrition; I76 Septic arterial embolism; I10 Essential (primary) hypertension; R65.20 Severe sepsis without septic shock; I95.9 Hypotension, unspecified; D64.9 Anemia, unspecified; B96.20 Unspecified Escherichia coli [E. coli] as the cause of diseases classified elsewhere; D69.6 Thrombocytopenia, unspecified; E11.65 Type 2 diabetes mellitus with hyperglycemia; E87.6 Hypokalemia; M19.90 Unspecified osteoarthritis, unspecified site; B95.61 Methicillin susceptible Staphylococcus aureus infection as the cause of diseases classified elsewhere; I05.9 Rheumatic mitral valve disease, unspecified; Z79.2 Long term (current) use of antibiotics; Z87.891 Personal history of nicotine dependence; Z68.25 Body mass index [BMI] 25.0-25.9, adult
CPT/HCPCS: 10047; 27000

== ENCOUNTER → 2019-01-11 | Outpatient (CLI) | payer OTHER ==
[~2019-01-11] VITALS: Ht 233.7 cm; Wt 94.8 kg
[~2019-01-11] MED LIST changes: +ACETAMINOPHEN325 M1 PO; +B-12500 MCG PO; +BENICAR20 MG PO; +COLACE 100 MG100 MG PO; +GLUCOPHAGE XR500 MG PO; +MIRALAX17 GM PO; +MUCINEX DM ER1 EAC1 PO; +NAFCILLIN2 GM/100 M IV; +RIFADIN IVPB
[2019-01-11 07:53] VITALS: BP 134/83
--- NOTE | 2019-01-11 09:38 | TEE ---
[facility] [address] [place] [address] TRANSESOPHAGEAL ECHOCARDIOGRAM Name: MEREDITH PEREZ Room #: REG CL [facility]#: [id number] ������������� Admission: 01/11/19 ������������� Attend Phys: Jaspal Robledo MD Discharge: ��� ������������� ��� Date of : 46 Date of Service: 01/11/19 0938 �� Report #: [id number] �������� ��������������������������������������������[id number] THIS REPORT FOR: //name// ADDENDUM APPROVED REPORT Study performed: 01/11/2019 08:01:04 EXAM: Transesophageal Echocardiogram Patient Location: Out-Patient Room #: CVL Status: routine BSA: 2.26 HR: 93 bpm BP: 149/81 mmHg Rhythm: NSR Other Information Study Quality: Good Indications Follow up mitral valve endocarditis. Procedure After obtaining informed consent, patient underwent transesophageal echo in the [employer]. Type of Sedation : Conscious Sedation Sedation was achieved intravenously with: Versed (4) Fentanyl (50) Transesophageal probe was inserted and advanced into esophagus without difficulty by Saul Chau MD. The SALLY was performed without complications. Throughout the procedure, the blood pressure, pulse oximetry, cardiac rhythm, and rate were monitored. The patient tolerated the procedure without adverse effects. Recovery from conscious sedation was uneventful and vital signs were stable. Left Ventricle The left ventricle is normal size. There is normal LV segmental wall motion. There is normal left ventricular wall thickness. Left ventricular systolic function is normal. LVEF is 55-60%. Right Ventricle The right ventricle is normal size. The right ventricular systolic function is normal. [facility] [address] [place] [address] TRANSESOPHAGEAL ECHOCARDIOGRAM Name: MEREDITH PEREZ Room #: REG CL [facility].#: [id number] ������������� Admission: 01/11/19 ������������� Attend Phys: Jaspal Robledo MD Discharge: ��� ������������� ��� Date of : 46 Date of Service: 01/11/19 0938 �� Report #: [id number] �������� ��������������������������������������������[id number] [place] The left atrium size is normal. No thrombus is visualized in the left atrium or appendage. The right atrium size is normal. Aortic Valve Aortic valve is trileaflet. No aortic regurgitation is present. There is no aortic valvular stenosis. Mitral Valve The mitral valve is normal in structure. 0.6 cm diameter oval mass adherent to anterior leaflet of the mitral valve, consistent with known mitral valve vegetation. This appears less friable and smaller than seen on a SALLY dated December 17, 2018. Mild mitral regurgitation. Tricuspid Valve The tricuspid valve is normal in structure. Trace tricuspid regurgitation. Pulmonic Valve The pulmonary valve is normal in structure. Trace pulmonic regurgitation. Great Vessels The aortic root is normal in size. IVC is normal in size and collapses >50% with inspiration. Pericardium There is no pericardial effusion. Critical Notification Critical Value: Yes Physician Notified Date: 01/11/2019 <Conclusion> Left ventricular systolic function is normal. There is normal LV segmental wall motion. LVEF is 55-60%. Aortic valve is trileaflet. No aortic regurgitation or stenosis. The mitral valve is normal in structure. 0.6 cm diameter oval mass adherent to anterior leaflet of the mitral valve, consistent with known mitral valve vegetation. This appears less friable and smaller than seen on a SALLY dated December 17, 2018. [facility] [email or web address] [address] TRANSESOPHAGEAL ECHOCARDIOGRAM Name: MEREDITH PEREZ Room #: REG [facility] [id number] ������������� Admission: 01/11/19 ������������� Attend Phys: Jaspal Robledo MD Discharge: ��� ������������� ��� Date of : 46 Date of Service: 01/11/19937 �� Report #: [id number] �������� ��������������������������������������������[id number] Mild mitral regurgitation. There is no pericardial effusion. ��������������������������������������������� <ELECTRONICALLY SIGNED> ���������������������������������������� By: Saul Chau MD, [facility] ��������������������������������������������� 01/11/19937 7 7 Saul Chau MD, [facility] /INF
== END | disposition home or self-care (01) ==
LOC: CATH 07:07 → CV 07:07 → CATH 07:54
DX: I34.0 Nonrheumatic mitral (valve) insufficiency (principal); I10 Essential (primary) hypertension; E11.9 Type 2 diabetes mellitus without complications; K21.9 Gastro-esophageal reflux disease without esophagitis; Z87.891 Personal history of nicotine dependence; Z98.890 Other specified postprocedural states; Z79.899 Other long term (current) drug therapy

== ENCOUNTER 2019-02-25 13:18 | Emergency (ER) | payer OTHER ==
[~2019-02-25] VITALS: Ht 182.9 cm; Wt 95.3 kg
[2019-02-25 14:18] LABS: ABSOLUTE NEUTROPHILS 5.9 thou/uL (1.4-8.2); BASOPHILS 0.7 % (0.0-2.0); EOSINOPHILS 1.3 % (0.0-3.0); HEMATOCRIT 40.2 % (42.0-52.0); HEMOGLOBIN 13.7 gm/dL (14.0-18.0); LYMPHOCYTES 15.7 % (24.0-44.0); MCH 32.3 pg (26.0-34.0); MCHC 34.1 g/dL (28.0-37.0); MCV 94.7 fL (80.0-100.0); MONOCYTES 6.8 % (1.0-8.0); PLATELET COUNT 151 thou/uL (150-400); POLYS 75.5 % (36.0-66.0); RBC 4.25 mil/uL (4.50-6.00); RDW 12.8 % (10.5-14.5); WBC 7.8 thou/uL (4.0-11.0)
[2019-02-25 14:26] LABS: ANION GAP 6 mmol/L (7-16); BUN 13 mg/dL (7-18); CALCIUM 9.5 mg/dL (8.5-10.1); CHLORIDE 102 mmol/L (98-107); CO2 30 mmol/L (21-32); CREATININE 0.8 mg/dL (0.7-1.3); GLUCOSE 166 mg/dL (74-106); SODIUM 138 mmol/L (136-145)
[2019-02-25 14:36] LABS: ALBUMIN 3.3 g/dL (3.4-5.0); DIRECT BILIRUBIN < 0.1 mg/dL (<0.1-0.3); SGOT 13 U/L (15-37); SGPT 17 U/L (30-65); TOTAL BILIRUBIN 0.4 mg/dL (<0.1-1.0); TROPONIN-I <0.06 ng/mL (<0.06)
[2019-02-25 16:09] LABS: URINE BILIRUBIN NEGATIVE (Negative); URINE BLOOD NEGATIVE (Negative); URINE CLARITY CLEAR; URINE COLOR YELLOW; URINE GLUCOSE-RANDOM* 1+ (Negative); URINE KETONES NEGATIVE (Negative); URINE LEUKOCYTES-REFLEX NEGATIVE (Negative); URINE NITRITE-REFLEX NEGATIVE (Negative); URINE PROTEIN (DIPSTICK) NEGATIVE (Negative); URINE SPECIFIC GRAVITY 1.015 (1.005-1.035); URINE UROBILINOGEN 0.2 E.U./dl (0.2-1.0)
[2019-02-25 17:00] VITALS: BP 126/74
--- NOTE | 2019-02-27 15:11 | EKG ---
[place] [address] [place] [address] ELECTROCARDIOGRAM REPORT Name: MEREDITH PEREZ Room #: [facility]P [facility] [id number] ������������������ Admission: 02/25/19 ������������������ Attend Phys: Discharge: 02/25/19 ������������������ Date of : 46 Report #: [id number] ����������������������������������������������������������������� [id number] THIS REPORT FOR: //name// [facility] [place] [facility] ED Test Date: 2019-02-25 Test Time: 13:31:48 Pat Name: MEREDITH PEREZ Department: Room: Gender: M [employer]: MARINO : 1950 Requested By: Debbie Griffin Order Number: [id number] MD: Saul Chau Measurements Intervals [place] Rate: 54 P: -26 WA: 186 QRS: 2 QRSD: 109 T: 58 QT: 441 QTc: 418 Interpretive Statements Sinus bradycardia RSR' in V1 or V2, probably normal variant Minimal ST elevation, inferior leads Compared to ECG 12/12/2018 01:14:34 RSR' in V1 or V2 now present ST (T wave) deviation now present Atrial premature complex(es) no longer present Electronically Signed On 02-27-2019 15:11:27 CDT by Saul Chau [email or web address] ��������������������������������������������� <ELECTRONICALLY SIGNED> ���������������������������������������� By: Saul Chau MD, [facility] ��������������������������������������������� 02/27/19 1511 1331 [id number] Saul Chau MD, [facility] /EPI
== END 2019-02-25 16:30 | disposition home or self-care (01) ==
LOC: ER 13:18
PROVIDERS: Emergency Medicine
DX: R55 Syncope and collapse (principal); R42 Dizziness and giddiness; R11.2 Nausea with vomiting, unspecified; I10 Essential (primary) hypertension; E11.9 Type 2 diabetes mellitus without complications; M19.90 Unspecified osteoarthritis, unspecified site; Z86.011 Personal history of benign neoplasm of the brain; Z98.890 Other specified postprocedural states; Z86.19 Personal history of other infectious and parasitic diseases

== ENCOUNTER → 2019-08-10 | Outpatient (CLI) | payer OTHER | END | disposition home or self-care (01) | LOC: SJCVC 14:55 | DX: I10 Essential (primary) hypertension (principal); E11.9 Type 2 diabetes mellitus without complications; R94.31 Abnormal electrocardiogram [ECG] [EKG]; I38 Endocarditis, valve unspecified; Z79.84 Long term (current) use of oral hypoglycemic drugs; Z79.899 Other long term (current) drug therapy; Z82.49 Family history of ischemic heart disease and other diseases of the circulatory system; Z87.891 Personal history of nicotine dependence ==

== ENCOUNTER → 2021-01-23 | Outpatient (CLI) | payer OTHER | LOC: SJCVC 11:28 | PROVIDERS: ATTEND Internal Medicine | DX: R94.31 Abnormal electrocardiogram [ECG] [EKG] (principal); I44.0 Atrioventricular block, first degree; I45.4 Nonspecific intraventricular block; R55 Syncope and collapse; R06.00 Dyspnea, unspecified; I47.1 Supraventricular tachycardia; I10 Essential (primary) hypertension; I39 Endocarditis and heart valve disorders in diseases classified elsewhere; E78.5 Hyperlipidemia, unspecified; I34.0 Nonrheumatic mitral (valve) insufficiency; M19.90 Unspecified osteoarthritis, unspecified site; N40.0 Benign prostatic hyperplasia without lower urinary tract symptoms; E11.9 Type 2 diabetes mellitus without complications; Z79.899 Other long term (current) drug therapy; Z87.891 Personal history of nicotine dependence; Z82.49 Family history of ischemic heart disease and other diseases of the circulatory system ==

== ENCOUNTER → 2021-03-06 | Outpatient (CLI) | payer OTHER | LOC: SJCVCIMAG 07:57 | PROVIDERS: ATTEND Internal Medicine | DX: I08.1 Rheumatic disorders of both mitral and tricuspid valves (principal); I11.9 Hypertensive heart disease without heart failure; R94.31 Abnormal electrocardiogram [ECG] [EKG]; R00.1 Bradycardia, unspecified; I45.4 Nonspecific intraventricular block; I77.89 Other specified disorders of arteries and arterioles; I47.1 Supraventricular tachycardia; I39 Endocarditis and heart valve disorders in diseases classified elsewhere; E78.5 Hyperlipidemia, unspecified; I44.7 Left bundle-branch block, unspecified; Z79.899 Other long term (current) drug therapy; Z87.891 Personal history of nicotine dependence; Z82.49 Family history of ischemic heart disease and other diseases of the circulatory system ==

== ENCOUNTER → 2021-09-23 | Outpatient (CLI) | payer OTHER | LOC: SJCVC 15:42 | PROVIDERS: ATTEND Internal Medicine | DX: I10 Essential (primary) hypertension (principal); R94.31 Abnormal electrocardiogram [ECG] [EKG]; I47.1 Supraventricular tachycardia; I39 Endocarditis and heart valve disorders in diseases classified elsewhere; E78.5 Hyperlipidemia, unspecified; I44.7 Left bundle-branch block, unspecified; R07.2 Precordial pain; R06.02 Shortness of breath; F10.10 Alcohol abuse, uncomplicated; Z79.899 Other long term (current) drug therapy; Z82.49 Family history of ischemic heart disease and other diseases of the circulatory system; F17.210 Nicotine dependence, cigarettes, uncomplicated ==